=== PATIENT | female | born 1965 | race Caucasian/White ===

== ENCOUNTER → 2018-05-15 13:00 | Outpatient (CLI) | payer BC, SELFPAY ==
[2018-05-21 14:07] LABS: HPV APTIMA, High Risk Negative (Negative)
== END ==
PROVIDERS: Referring Provider Nurse Practitioner Women's Health; Visit Provider Nurse Practitioner Women's Health
DX: Z12.4 Encounter for screening for malignant neoplasm of cervix (principal)
CPT/HCPCS: 87624; 88175; G0145

== ENCOUNTER → 2018-05-22 12:12 | Outpatient (CLI) | payer BC, SELFPAY ==
--- NOTE | 2018-05-22 12:14 | US_ITS ---
STUDY: ULTRASOUND OF THE FEMALE PELVIS - COMPLETE REASON FOR EXAM: Female, 52 years old. Heavy menses. LMP: 05/22/2018. TECHNIQUE: Transabdominal and Transvaginal TECHNICAL QUALITY: Adequate. COMPARISON: None. FINDINGS: The uterus is anteverted and is in a midline position. The uterus measures 11.8 x 6.3 x 4.5 cm. There is a Nabothian cyst of the cervix. The endometrium measures 7.7 mm in thickness, and is hyperechoic. There is no demonstrated endometrial mass. Focal uterine fibroids are seen. There are at least 2 measuring 1.3 and 2.6 cm greatest dimensions. The right ovary is visualized. The right ovary measures 3.1 x 1.9 x 2.2 cm. There is no right ovarian cyst or ovarian mass. There is no visualized right adnexal mass or complex lesion. There is normal arterial and normal venous vascularity. The left ovary is visualized. The left ovary measures 3.6 x 2.5 x 2.3 cm. There is no left ovarian cyst or ovarian mass. There is no visualized left adnexal mass or complex lesion. There is normal arterial and normal venous vascularity. There is no fluid in the cul-de-sac. The pre void volume of the bladder was 448 ml. The patient was unable to completely empty her bladder. US/Pelvic (Non ) IMPRESSION: Uterus is larger than expected for patient of this age. There are also at least 2 focal fibroids measuring 1.3 and 2.6 cm. Endometrial echoes are diffusely hyperechoic possibly related to the current menstrual period. No other findings. Electronically Signed: Stanley Machuca MD at 12:01 EST , Service support ,
--- NOTE | 2018-05-22 12:14 | US_ITS ---
STUDY: ULTRASOUND OF THE FEMALE PELVIS - COMPLETE REASON FOR EXAM: Female, 52 years old. Heavy menses. LMP: 05/22/2018. TECHNIQUE: Transabdominal and Transvaginal TECHNICAL QUALITY: Adequate. COMPARISON: None. FINDINGS: The uterus is anteverted and is in a midline position. The uterus measures 11.8 x 6.3 x 4.5 cm. There is a Nabothian cyst of the cervix. The endometrium measures 7.7 mm in thickness, and is hyperechoic. There is no demonstrated endometrial mass. Focal uterine fibroids are seen. There are at least 2 measuring 1.3 and 2.6 cm greatest dimensions. The right ovary is visualized. The right ovary measures 3.1 x 1.9 x 2.2 cm. There is no right ovarian cyst or ovarian mass. There is no visualized right adnexal mass or complex lesion. There is normal arterial and normal venous vascularity. The left ovary is visualized. The left ovary measures 3.6 x 2.5 x 2.3 cm. There is no left ovarian cyst or ovarian mass. There is no visualized left adnexal mass or complex lesion. There is normal arterial and normal venous vascularity. There is no fluid in the cul-de-sac. The pre void volume of the bladder was 448 ml. The patient was unable to completely empty her bladder. US/Transvaginal Non- IMPRESSION: Uterus is larger than expected for patient of this age. There are also at least 2 focal fibroids measuring 1.3 and 2.6 cm. Endometrial echoes are diffusely hyperechoic possibly related to the current menstrual period. No other findings. Electronically Signed: Stanley Machuca MD at 12:01 EST , Service support ,
== END ==
PROVIDERS: Family Provider Family Medicine; PCP Family Medicine; Referring Provider Nurse Practitioner Women's Health; Visit Provider Nurse Practitioner Women's Health
DX: N92.0 Excessive and frequent menstruation with regular cycle (principal)
CPT/HCPCS: 76830; 76856; 93976

== ENCOUNTER → 2018-05-24 13:59 | Outpatient (CLI) | payer BC, SELFPAY ==
--- NOTE | 2018-05-24 14:02 | BI_ITS ---
MAMMOGRAPHY - BILATERAL SCREENING REASON FOR EXAM: Female, 52 years old. Routine annual screening examination. PERTINENT HISTORY: Non-contributory. TECHNIQUE: Digital bilateral breast ann (3D mammographic acquisition) in the CC and MLO projections. 2-D mediolateral oblique (MLO) and craniocaudad (CC) views of both breasts were obtained. CAD: Full Field Digital Mammography with Computer Added Detection was performed. COMPARISON: Comparison is made with prior outside examination dated December 13, 2016. FINDINGS: Breast Composition: The breasts are heterogeneously dense, which may obscure small masses. There are no dominant masses or suspicious calcifications. Stable small left axillary lymph nodes. No other significant abnormalities are identified. There has been no significant change since the prior study. BI/SCREENING MAMM (CAD), BILAT IMPRESSION: Stable bilateral screening mammogram. Yearly follow-up mammogram recommended. (A) ASSESSMENT CATEGORY: BIRADS Category 2: Benign. A letter regarding these results will be sent to the patient by the facility within 30 days. Approximately 10% of breast cancers are not detected by mammography. A normal mammogram should not delay biopsy of a clinically suspicious abnormality. [id number] Electronically Signed: Enrique Lewis MD at 14:19 EST Tel [phone], Service support ,
== END ==
PROVIDERS: Family Provider Family Medicine; PCP Family Medicine; Referring Provider Nurse Practitioner Women's Health; Visit Provider Nurse Practitioner Women's Health
DX: Z12.31 Encounter for screening mammogram for malignant neoplasm of breast (principal)
CPT/HCPCS: 77063; 77067